=== PATIENT | male | born 1955 ===

== ENCOUNTER 2016-05-05 11:56 | Outpatient (CLI) | payer MEDICARE, OTHER ==
--- NOTE | 2016-05-05 12:51 | XRay Report ---
LUMBAR SPINE RADIOGRAPHS: INDICATION: Lumbar degenerative disc disease. COMPARISON: None similar at this institution. FINDINGS: AP and lateral lumbar spine radiographs demonstrate preserved vertebral body stature and alignment. S1 may be lumbarized, presuming the superior most non-rib bearing vertebra labeled L1. Per that, L5-S1 fusion device anteriorly noted with intervertebral disc maintainers. Nonobstructive bowel gas pattern. Normal bilateral SI joints. CONCLUSION: No acute lumbar radiographic abnormality with postsurgical/fusion changes inferiorly noted, as described. Please correlate. Thank you for the opportunity to participate in this patient's care.
== END 2016-05-05 11:57 | disposition home or self-care (01) ==
LOC: SPVIMAG 11:56
PROVIDERS: ATTEND Neurological Surgery
DX: M51.36 Other intervertebral disc degeneration, lumbar region (principal)
CPT/HCPCS: 72100